=== PATIENT | female | born 1995 | race American Indian/Alaskan Native ===

== ENCOUNTER 2017-09-16 21:28 | Inpatient (IN) | payer SELFPAY ==
--- NOTE | 2017-09-16 22:53 | Emergency Department Report ---
ED General Adult HPI - General Chief complaint: Overdose Stated complaint: POSS OVERDOSE Time Seen by Provider: 09/16/17 22:51 Source: patient, EMS (ems notes not available at time of chart dictation), RN notes reviewed Mode of arrival: Stretcher Limitations: No Limitations - History of Present Illness Initial comments: This is a 21-year-old female who is previously known to this provider, brought to the hospital by EMS with complaint of nausea and vomiting. Patient has been having a toothache for the past few days, and has been taking aspirin by the handful since this morning. Patient is adamant that she is not homicidal or suicidal. She reports she is only trying to "helped my pain." Patient denies headache, neck pain, chest pain, shortness of breath, admits to nausea and vomiting. Reports that she is not . -: Gradual Consistency: constant Improves with: none Worsens with: none Associated Symptoms: loss of appetite, malaise, nausea/vomiting, weakness. denies: confusion, chest pain, cough, diaphoresis, headaches - Related Data Home Medications Medication Instructions Recorded Confirmed Last Taken No Known Home Medications [No 09/16/17 09/16/17 Unknown Reported Home Medications] Allergies Allergy/AdvReac Type Severity Reaction Status Date / Time No Known Allergies Allergy Verified 09/16/17 23:50 ED Review of Systems ROS: Stated complaint: POSS OVERDOSE Other details as noted in HPI ED Past Medical Hx - Past Medical History Previous Medical History?: No - Surgical History Past Surgical History?: No - Social History Smoking Status: Never Smoker Substance Use Type: None - Medications Home Medications: Home Medications Medication Instructions Recorded Confirmed Last Taken Type No Known Home Medications [No 09/16/17 09/16/17 Unknown History Reported Home Medications] ED Physical Exam - General Limitations: No Limitations General appearance: alert, anxious, in distress - Head Head exam: Present: atraumatic, normocephalic - Eye Eye exam: Present: normal appearance, EOMI - ENT ENT exam: Present: normal exam, mucous membranes moist - Neck Neck exam: Present: normal inspection, full ROM - Respiratory Respiratory exam: Present: normal lung sounds bilaterally. Absent: respiratory distress - Cardiovascular Cardiovascular Exam: Present: normal rhythm, tachycardia, normal heart sounds. Absent: systolic murmur, diastolic murmur, rubs, gallop - GI/Abdominal GI/Abdominal exam: Present: soft, normal bowel sounds. Absent: distended, tenderness, guarding, rebound, rigid, pulsatile mass - Extremities Exam Extremities exam: Present: normal inspection, full ROM, normal capillary refill. Absent: pedal edema, joint swelling, calf tenderness - Back Exam Back exam: Present: normal inspection, full ROM. Absent: tenderness, CVA tenderness (R), paraspinal tenderness, vertebral tenderness - Neurological Exam Neurological exam: Present: alert, oriented X3, CN II-XII intact, normal gait, other (Extraocular movements intact. Tongue midline. No facial droop. Facial sensation intact to light touch in the V1, V2, V3 distribution bilaterally. 5 and 5 strength in 4 extremities.. Sensation is intact to light touch in 4 extremities.). Absent: motor sensory deficit - Psychiatric Psychiatric exam: Present: anxious. Absent: homicidal ideation - Skin Skin exam: Present: warm, dry, intact, normal color. Absent: rash ED Course Vital Signs 09/16/17 09/16/17 09/16/17 22:06 22:08 22:12 Temperature Pulse Rate 83 87 89 Respiratory 24 24 17 Rate Blood Pressure O2 Sat by Pulse 100 99 99 Oximetry 09/16/17 09/16/17 09/16/17 22:14 22:16 22:18 Temperature 98.7 F Pulse Rate 96 H 84 89 Respiratory 17 19 16 Rate Blood Pressure 125/68 125/68 O2 Sat by Pulse 100 100 99 Oximetry 09/16/17 09/16/17 09/16/17 22:19 22:20 22:22 Temperature Pulse Rate 82 84 83 Respiratory 23 21 22 Rate Blood Pressure 125/68 125/68 125/68 O2 Sat by Pulse 100 100 99 Oximetry 09/16/17 09/16/17 09/16/17 22:24 22:26 22:28 Temperature Pulse Rate 95 H 80 88 Respiratory 17 15 23 Rate Blood Pressure 125/68 125/68 125/68 O2 Sat by Pulse 99 99 100 Oximetry 09/16/17 09/16/17 09/16/17 22:30 22:32 22:34 Temperature Pulse Rate 79 77 87 Respiratory 25 H 20 21 Rate Blood Pressure 121/75 121/75 121/75 O2 Sat by Pulse 100 99 99 Oximetry 09/16/17 09/16/17 09/16/17 22:36 22:38 22:40 Temperature Pulse Rate 98 H 102 H 105 H Respiratory 25 H 36 H 27 H Rate Blood Pressure 121/75 121/75 121/75 O2 Sat by Pulse 100 99 100 Oximetry 09/16/17 09/16/17 09/16/17 22:42 22:44 22:45 Temperature Pulse Rate 92 H 91 H 94 H Respiratory 22 24 17 Rate Blood Pressure 121/75 121/75 117/84 O2 Sat by Pulse 100 100 100 Oximetry 09/16/17 09/16/17 09/16/17 23:00 23:15 23:30 Temperature Pulse Rate 85 93 H 85 Respiratory 21 26 H 21 Rate Blood Pressure 125/68 140/71 119/69 O2 Sat by Pulse 100 99 99 Oximetry 09/16/17 09/17/17 09/17/17 23:54 00:00 00:15 Temperature Pulse Rate 102 H 95 H 100 H Respiratory 27 H 23 22 Rate Blood Pressure 129/99 129/99 139/96 O2 Sat by Pulse 100 100 Oximetry 09/17/17 09/17/17 09/17/17 00:29 00:30 00:45 Temperature Pulse Rate 87 85 Respiratory 22 18 18 Rate Blood Pressure 119/69 118/82 O2 Sat by Pulse 99 99 99 Oximetry 09/17/17 09/17/17 09/17/17 01:00 01:15 01:30 Temperature Pulse Rate 97 H 87 100 H Respiratory 19 16 18 Rate Blood Pressure 120/82 117/64 109/70 O2 Sat by Pulse 100 98 97 Oximetry 09/17/17 09/17/17 09/17/17 01:45 02:00 02:16 Temperature Pulse Rate 83 86 88 Respiratory 19 22 19 Rate Blood Pressure 120/72 120/72 106/55 O2 Sat by Pulse 100 99 97 Oximetry 09/17/17 09/17/17 09/17/17 02:30 02:45 03:00 Temperature Pulse Rate 88 85 86 Respiratory 20 21 20 Rate Blood Pressure 100/53 107/58 98/59 O2 Sat by Pulse 95 95 98 Oximetry 09/17/17 09/17/17 09/17/17 03:16 03:30 03:45 Temperature Pulse Rate 77 100 H 78 Respiratory 18 13 17 Rate Blood Pressure 92/68 90/66 94/48 O2 Sat by Pulse 96 96 97 Oximetry 09/17/17 09/17/17 09/17/17 04:00 04:15 04:30 Temperature Pulse Rate 73 79 94 H Respiratory 18 16 23 Rate Blood Pressure 99/48 94/49 94/49 O2 Sat by Pulse 98 98 99 Oximetry 09/17/17 09/17/17 09/17/17 04:46 05:00 05:30 Temperature Pulse Rate 83 83 74 Respiratory 19 19 17 Rate Blood Pressure 94/49 94/49 85/49 O2 Sat by Pulse 99 99 98 Oximetry 09/17/17 09/17/17 09/17/17 05:45 06:00 06:15 Temperature Pulse Rate 84 74 85 Respiratory 16 17 18 Rate Blood Pressure 102/48 102/53 106/53 O2 Sat by Pulse 100 97 97 Oximetry 09/17/17 09/17/17 09/17/17 06:30 06:46 07:00 Temperature Pulse Rate 84 90 84 Respiratory 18 18 13 Rate Blood Pressure 105/45 106/51 94/61 O2 Sat by Pulse 97 99 99 Oximetry 09/17/17 09/17/17 09/17/17 07:15 07:30 07:48 Temperature Pulse Rate 81 103 H 87 Respiratory 18 20 18 Rate Blood Pressure 100/55 100/55 100/55 O2 Sat by Pulse 99 98 Oximetry 09/17/17 09/17/17 09/17/17 08:16 08:38 08:44 Temperature 98.7 F Pulse Rate 88 Respiratory 22 Rate Blood Pressure 100/55 100/55 O2 Sat by Pulse 98 Oximetry 09/17/17 09/17/17 09/17/17 08:50 09:00 09:10 Temperature Pulse Rate 77 74 80 Respiratory 24 28 H 13 Rate Blood Pressure 100/55 100/55 100/55 O2 Sat by Pulse Oximetry 09/17/17 09/17/17 09/17/17 09:20 09:30 09:40 Temperature Pulse Rate 79 82 78 Respiratory 8 L 18 18 Rate Blood Pressure 100/55 100/55 100/55 O2 Sat by Pulse Oximetry 09/17/17 09/17/17 09/17/17 09:50 10:00 10:10 Temperature Pulse Rate 71 87 89 Respiratory 19 20 20 Rate Blood Pressure 100/55 100/55 100/55 O2 Sat by Pulse Oximetry 09/17/17 09/17/17 09/17/17 10:20 10:30 10:54 Temperature 98.8 F Pulse Rate 88 89 85 Respiratory 19 20 18 Rate Blood Pressure 100/55 100/55 113/76 O2 Sat by Pulse 99 Oximetry - Reevaluation(s) Reevaluation #1: 09/17/17 01:41 Differential diagnosis, including but not limited to: Aspirin overdose, Assessment and plan: 21-year-old female with aspirin overdose. She reports that she is not homicidal or suicidal. Nevertheless, given the magnitude of her overdose she is placed on a 1013. Patient is actively vomiting, therefore she is not a charcoal candidate. In addition, she presented more than one hour after her overdose/ingestion, therefore also not a charcoal candidate. Case discussed with the [facility], [place] who recommends admission to the ICU. Does not recommend dialysis for level less than 80. Patient currently mentating at this time, and does not require intubation, her arterial blood gas demonstrates an uncompensated respiratory alkalosis, which would be expected. Case discussed with critical care physician, Dr. Thomason, in the Hospital physician, Dr. Newby, who recommended admission to the ICU and agreed to consult, and admits the patient to the medical service respectively. 09/17/17 01:43 09/17/17 01:48 Reevaluation #2: 09/17/17 01:45 [facility] recommendations: Maintaining urine pH greater than 7.5, ensure that serum pH does not supersede 7.55 Obtain x-ray of the chest, abdomen and pelvis to exclude bezoar If urine not an alkaline range, bolus with sodium bicarbonate 1 mEq per kilogram. Of note, patient given 2 A of sodium bicarbonate initially. Begin maintenance infusion of D5 whole half normal saline with 100 mEq of sodium bicarbonate, at a rate of 120 mL per hour. Titrate infusion to maintain urine pH greater than 7.5. Monitor potassium. Initial urine pH was rechecked at 30 minute intervals. This interval maybe latent at the urinary pH is stabilized. Serum potassium levels to be monitored every 2-4 hours during alkalinization therapy. ED Medical Decision Making - Lab Data Result diagrams: 09/16/17 22:41 09/17/17 14:30 Vital Signs 09/16/17 09/16/17 09/16/17 22:06 22:08 22:12 Temperature Pulse Rate 83 87 89 Respiratory 24 24 17 Rate Blood Pressure O2 Sat by Pulse 100 99 99 Oximetry 09/16/17 09/16/1717 22:14 22:16 22:18 Temperature 98.7 F Pulse Rate 96 H 84 89 Respiratory 17 19 16 Rate Blood Pressure 125/68 125/68 O2 Sat by Pulse 100 100 99 Oximetry 09/16/17 09/16/17 09/16/17 22:19 22:20 22:22 Temperature Pulse Rate 82 84 83 Respiratory 23 21 22 Rate Blood Pressure 125/68 125/68 125/68 O2 Sat by Pulse 100 100 99 Oximetry 09/16/17 09/16/17 09/16/17 22:24 22:26 22:28 Temperature Pulse Rate 95 H 80 88 Respiratory 17 15 23 Rate Blood Pressure 125/68 125/68 125/68 O2 Sat by Pulse 99 99 100 Oximetry 09/16/17 09/16/17 09/16/17 22:30 22:32 22:34 Temperature Pulse Rate 79 77 87 Respiratory 25 H 20 21 Rate Blood Pressure 121/75 121/75 121/75 O2 Sat by Pulse 100 99 99 Oximetry 09/16/17 09/16/17 09/16/17 22:36 22:38 22:40 Temperature Pulse Rate 98 H 102 H 105 H Respiratory 25 H 36 H 27 H Rate Blood Pressure 121/75 121/75 121/75 O2 Sat by Pulse 100 99 100 Oximetry 09/16/17 09/16/17 09/16/17 22:42 22:44 22:45 Temperature Pulse Rate 92 H 91 H 94 H Respiratory 22 24 17 Rate Blood Pressure 121/75 121/75 117/84 O2 Sat by Pulse 100 100 100 Oximetry 09/16/17 09/16/17 09/16/17 23:00 23:15 23:30 Temperature Pulse Rate 85 93 H 85 Respiratory 21 26 H 21 Rate Blood Pressure 125/68 140/71 119/69 O2 Sat by Pulse 100 99 99 Oximetry 09/16/17 09/17/17 09/17/17 23:54 00:00 00:15 Temperature Pulse Rate 102 H 95 H 100 H Respiratory 27 H 23 22 Rate Blood Pressure 129/99 129/99 139/96 O2 Sat by Pulse 100 100 Oximetry 09/17/17 00:29 Temperature Pulse Rate Respiratory 22 Rate Blood Pressure O2 Sat by Pulse 99 Oximetry Lab Results 09/16/17 09/16/17 09/16/17 Range/Units 22:41 22:41 22:41 WBC 16.8 H (4.5-11.0) K/mm3 RBC 5.14 H (3.65-5.03) M/mm3 Hgb 15.4 H (10.1-14.3) gm/dl Hct 47.7 H (30.3-42.9) % MCV 93 (79-97) fl MCH 30 (28-32) pg MCHC 32 (30-34) % RDW 14.0 (13.2-15.2) % Plt Count 371 (140-440) K/mm3 Add Manual Diff Complete Total Counted 100 Seg Neutrophils % Mason[employer]er Seg Neuts % (Manual) 91.0 H (40.0-70.0) % Band Neutrophils % 0 % Lymphocytes % (Manual) 8.0 L (13.4-35.0) % Reactive Lymphs % (Man) 0 % Monocytes % (Manual) 1.0 (0.0-7.3) % Eosinophils % (Manual) 0 (0.0-4.3) % Basophils % (Manual) 0 (0.0-1.8) % Metamyelocytes % 0 % Myelocytes % 0 % Promyelocytes % 0 % Blast Cells % 0 % Nucleated RBC % Not Reportable Seg Neutrophils # Man 15.3 H (1.8-7.7) K/mm3 Band Neutrophils # 0.0 K/mm3 Lymphocytes # (Manual) 1.3 (1.2-5.4) K/mm3 Abs React Lymphs (Man) 0.0 K/mm3 Monocytes # (Manual) 0.2 (0.0-0.8) K/mm3 Eosinophils # (Manual) 0.0 (0.0-0.4) K/mm3 Basophils # (Manual) 0.0 (0.0-0.1) K/mm3 Metamyelocytes # 0.0 K/mm3 Myelocytes # 0.0 K/mm3 Promyelocytes # 0.0 K/mm3 Blast Cells # 0.0 K/mm3 WBC Morphology Not Reportable Hypersegmented Neuts Not Reportable Hyposegmented Neuts Not Reportable Hypogranular Neuts Not Reportable Smudge Cells Not Reportable Toxic Granulation Not Reportable Toxic Vacuolation Not Reportable Dohle Bodies Not Reportable Pelger-Huet Anomaly Not Reportable Valerio Rods Not Reportable Platelet Estimate Consistent w auto Clumped Platelets Not Reportable Plt Clumps, EDTA Not Reportable Large Platelets Not Reportable Giant Platelets Not Reportable Platelet Satelliting Not Reportable Plt Morphology Comment Not Reportable RBC Morphology Not Reportable Dimorphic RBCs Not Reportable Polychromasia Not Reportable Hypochromasia Not Reportable Poikilocytosis Not Reportable Anisocytosis 1+ Microcytosis Not Reportable Macrocytosis Not Reportable Spherocytes Not Reportable Pappenheimer Bodies Not Reportable Sickle Cells Not Reportable Target Cells Not Reportable Tear Drop Cells Not Reportable Ovalocytes Not Reportable Helmet Cells Not Reportable Pyle-Lefors Bodies Not Reportable [place] Rings Not Reportable [place] Cells Not Reportable Bite Cells Not Reportable Crenated Cell Not Reportable Elliptocytes Not Reportable Acanthocytes (Spur) Not Reportable Rouleaux Not Reportable Hemoglobin C Crystals Not Reportable Schistocytes Not Reportable Malaria parasites Not Reportable Hal Bodies Not Reportable Hem Pathologist Commnt No PT (12.2-14.9) Sec. INR (0.87-1.13) APTT (24.2-36.6) Sec. POC ABG pH (7.35-7.45) POC ABG pCO2 (35-45) POC ABG pO2 (80-105) POC ABG HCO3 POC ABG Total CO2 POC ABG O2 Sat POC ABG Base Excess FiO2 % Sodium > 179 H* (137-145) mmol/L Potassium 6.3 H* (3.6-5.0) mmol/L Chloride > 139 H (98-107) mmol/L Carbon Dioxide 28 (22-30) mmol/L Anion Gap 18 mmol/L BUN 16 (7-17) mg/dL Creatinine 1.1 (0.7-1.2) mg/dL Estimated GFR > 60 ml/min BUN/Creatinine Ratio 15 % Glucose 254 H (65-100) mg/dL Calcium 12.4 H* (8.4-10.2) mg/dL Magnesium (1.7-2.3) mg/dL HCG, Quant (0-4) mIU/mL Urine Color (Yellow) Urine Turbidity (Clear) Urine pH (5.0-7.0) Ur Specific [place] (1.003-1.030) Urine Protein (Negative) mg/dL Urine Glucose (UA) (Negative) mg/dL Urine Ketones (Negative) mg/dL Urine Blood (Negative) Urine Nitrite (Negative) Ur Reducing Substances Urine Bilirubin (Negative) Urine Ictotest Urine Urobilinogen (<2.0) mg/dL Ur Leukocyte Esterase (Negative) Urine WBC (Auto) (0.0-6.0) /HPF Urine RBC (Auto) (0.0-6.0) /HPF U Epithel Cells (Auto) (0-13.0) /HPF Urine Bacteria (Auto) (Negative) /HPF Urine Mucus /HPF Salicylates 53.3 H (2.8-20.0) mg/dL Urine Opiates Screen Urine Methadone Screen Acetaminophen (10.0-30.0) ug/mL Ur Barbiturates Screen Ur Phencyclidine Scrn Ur Amphetamines Screen U Benzodiazepines Scrn Urine Cocaine Screen U Marijuana (THC) Screen Drugs of Abuse Note Plasma/Serum Alcohol (0-0.07) gm% 09/16/17 09/16/17 09/16/17 Range/Units 22:41 22:41 23:49 WBC (4.5-11.0) K/mm3 RBC (3.65-5.03) M/mm3 Hgb (10.1-14.3) gm/dl Hct (30.3-42.9) % MCV (79-97) fl MCH (28-32) pg MCHC (30-34) % RDW (13.2-15.2) % Plt Count (140-440) K/mm3 Add Manual Diff Total Counted Seg Neutrophils % Seg Neuts % (Manual) (40.0-70.0) % Band Neutrophils % % Lymphocytes % (Manual) (13.4-35.0) % Reactive Lymphs % (Man) % Monocytes % (Manual) (0.0-7.3) % Eosinophils % (Manual) (0.0-4.3) % Basophils % (Manual) (0.0-1.8) % Metamyelocytes % % Myelocytes % % Promyelocytes % % Blast Cells % % Nucleated RBC % Seg Neutrophils # Man (1.8-7.7) K/mm3 Band Neutrophils # K/mm3 Lymphocytes # (Manual) (1.2-5.4) K/mm3 Abs React Lymphs (Man) K/mm3 Monocytes # (Manual) (0.0-0.8) K/mm3 Eosinophils # (Manual) (0.0-0.4) K/mm3 Basophils # (Manual) (0.0-0.1) K/mm3 Metamyelocytes # K/mm3 Myelocytes # K/mm3 Promyelocytes # K/mm3 Blast Cells # K/mm3 WBC Morphology Hypersegmented Neuts Hyposegmented Neuts Hypogranular Neuts Smudge Cells Toxic Granulation Toxic Vacuolation Dohle Bodies Pelger-Huet Anomaly Valerio Rods Platelet Estimate Clumped Platelets Plt Clumps, EDTA Large Platelets Giant Platelets Platelet Satelliting Plt Morphology Comment RBC Morphology Dimorphic RBCs Polychromasia Hypochromasia Poikilocytosis Anisocytosis Microcytosis Macrocytosis Spherocytes Pappenheimer Bodies Sickle Cells Target Cells Tear Drop Cells Ovalocytes Helmet Cells Pyle-Lefors Bodies [place] Rings Neil Cells Bite Cells Crenated Cell Elliptocytes Acanthocytes (Spur) Rouleaux Hemoglobin C Crystals Schistocytes Malaria parasites Hal Bodies Hem Pathologist Commnt PT (12.2-14.9) Sec. INR (0.87-1.13) APTT (24.2-36.6) Sec. POC ABG pH (7.35-7.45) POC ABG pCO2 (35-45) POC ABG pO2 (80-105) POC ABG HCO3 POC ABG Total CO2 POC ABG O2 Sat POC ABG Base Excess FiO2 % Sodium (137-145) mmol/L Potassium (3.6-5.0) mmol/L Chloride (98-107) mmol/L Carbon Dioxide (22-30) mmol/L Anion Gap mmol/L BUN (7-17) mg/dL Creatinine (0.7-1.2) mg/dL Estimated GFR ml/min BUN/Creatinine Ratio % Glucose (65-100) mg/dL Calcium (8.4-10.2) mg/dL Magnesium (1.7-2.3) mg/dL HCG, Quant < 2 (0-4) mIU/mL Urine Color (Yellow) Urine Turbidity (Clear) Urine pH (5.0-7.0) Ur Specific [place] (1.003-1.030) Urine Protein (Negative) mg/dL Urine Glucose (UA) (Negative) mg/dL Urine Ketones (Negative) mg/dL Urine Blood (Negative) Urine Nitrite (Negative) Ur Reducing Substances Urine Bilirubin (Negative) Urine Ictotest Urine Urobilinogen (<2.0) mg/dL Ur Leukocyte Esterase (Negative) Urine WBC (Auto) (0.0-6.0) /HPF Urine RBC (Auto) (0.0-6.0) /HPF U Epithel Cells (Auto) (0-13.0) /HPF Urine Bacteria (Auto) (Negative) /HPF Urine Mucus /HPF Salicylates (2.8-20.0) mg/dL Urine Opiates Screen Urine Methadone Screen Acetaminophen < 15.0 (10.0-30.0) ug/mL Ur Barbiturates Screen Ur Phencyclidine Scrn Ur Amphetamines Screen U Benzodiazepines Scrn Urine Cocaine Screen U Marijuana (THC) Screen Drugs of Abuse Note Plasma/Serum Alcohol < 0.01 (0-0.07) gm% 09/16/17 09/16/17 09/17/17 Range/Units 23:53 23:53 00:00 WBC (4.5-11.0) K/mm3 RBC (3.65-5.03) M/mm3 Hgb (10.1-14.3) gm/dl Hct (30.3-42.9) % MCV (79-97) fl MCH (28-32) pg MCHC (30-34) % RDW (13.2-15.2) % Plt Count (140-440) K/mm3 Add Manual Diff Total Counted Seg Neutrophils % Seg Neuts % (Manual) (40.0-70.0) % Band Neutrophils % % Lymphocytes % (Manual) (13.4-35.0) % Reactive Lymphs % (Man) % Monocytes % (Manual) (0.0-7.3) % Eosinophils % (Manual) (0.0-4.3) % Basophils % (Manual) (0.0-1.8) % Metamyelocytes % % Myelocytes % % Promyelocytes % % Blast Cells % % Nucleated RBC % Seg Neutrophils # Man (1.8-7.7) K/mm3 Band Neutrophils # K/mm3 Lymphocytes # (Manual) (1.2-5.4) K/mm3 Abs React Lymphs (Man) K/mm3 Monocytes # (Manual) (0.0-0.8) K/mm3 Eosinophils # (Manual) (0.0-0.4) K/mm3 Basophils # (Manual) (0.0-0.1) K/mm3 Metamyelocytes # K/mm3 Myelocytes # K/mm3 Promyelocytes # K/mm3 Blast Cells # K/mm3 WBC Morphology Hypersegmented Neuts Hyposegmented Neuts Hypogranular Neuts Smudge Cells Toxic Granulation Toxic Vacuolation Dohle Bodies Pelger-Huet Anomaly Valerio Rods Platelet Estimate Clumped Platelets Plt Clumps, EDTA Large Platelets Giant Platelets Platelet Satelliting Plt Morphology Comment RBC Morphology Dimorphic RBCs Polychromasia Hypochromasia Poikilocytosis Anisocytosis Microcytosis Macrocytosis Spherocytes Pappenheimer Bodies Sickle Cells Target Cells Tear Drop Cells Ovalocytes Helmet Cells Pyle-Lefors Bodies [place] Rings [place] Cells Bite Cells Crenated Cell Elliptocytes Acanthocytes (Spur) Rouleaux Hemoglobin C Crystals Schistocytes Malaria parasites Hal Bodies Hem Pathologist Commnt PT 14.0 (12.2-14.9) Sec. INR 1.03 (0.87-1.13) APTT 32.3 (24.2-36.6) Sec. POC ABG pH (7.35-7.45) POC ABG pCO2 (35-45) POC ABG pO2 (80-105) POC ABG HCO3 POC ABG Total CO2 POC ABG O2 Sat POC ABG Base Excess FiO2 % Sodium 141 D (137-145) mmol/L Potassium 3.9 D (3.6-5.0) mmol/L Chloride 99.9 (98-107) mmol/L Carbon Dioxide 20 L D (22-30) mmol/L Anion Gap 25 mmol/L BUN 12 (7-17) mg/dL Creatinine 0.9 (0.7-1.2) mg/dL Estimated GFR > 60 ml/min BUN/Creatinine Ratio 13 % Glucose 116 H (65-100) mg/dL Calcium 9.6 D (8.4-10.2) mg/dL Magnesium 2.40 H (1.7-2.3) mg/dL HCG, Quant (0-4) mIU/mL Urine Color (Yellow) Urine Turbidity (Clear) Urine pH (5.0-7.0) Ur Specific [place] (1.003-1.030) Urine Protein (Negative) mg/dL Urine Glucose (UA) (Negative) mg/dL Urine Ketones (Negative) mg/dL Urine Blood (Negative) Urine Nitrite (Negative) Ur Reducing Substances Urine Bilirubin (Negative) Urine Ictotest Urine Urobilinogen (<2.0) mg/dL Ur Leukocyte Esterase (Negative) Urine WBC (Auto) (0.0-6.0) /HPF Urine RBC (Auto) (0.0-6.0) /HPF U Epithel Cells (Auto) (0-13.0) /HPF Urine Bacteria (Auto) (Negative) /HPF Urine Mucus /HPF Salicylates (2.8-20.0) mg/dL Urine Opiates Screen Urine Methadone Screen Acetaminophen (10.0-30.0) ug/mL Ur Barbiturates Screen Ur Phencyclidine Scrn Ur Amphetamines Screen U Benzodiazepines Scrn Urine Cocaine Screen U Marijuana (THC) Screen Drugs of Abuse Note Plasma/Serum Alcohol (0-0.07) gm% 09/17/17 09/17/17 09/17/17 Range/Units 00:19 00:27 00:27 WBC (4.5-11.0) K/mm3 RBC (3.65-5.03) M/mm3 Hgb (10.1-14.3) gm/dl Hct (30.3-42.9) % MCV (79-97) fl MCH (28-32) pg MCHC (30-34) % RDW (13.2-15.2) % Plt Count (140-440) K/mm3 Add Manual Diff Total Counted Seg Neutrophils % Seg Neuts % (Manual) (40.0-70.0) % Band Neutrophils % % Lymphocytes % (Manual) (13.4-35.0) % Reactive Lymphs % (Man) % Monocytes % (Manual) (0.0-7.3) % Eosinophils % (Manual) (0.0-4.3) % Basophils % (Manual) (0.0-1.8) % Metamyelocytes % % Myelocytes % % Promyelocytes % % Blast Cells % % Nucleated RBC % Seg Neutrophils # Man (1.8-7.7) K/mm3 Band Neutrophils # K/mm3 Lymphocytes # (Manual) (1.2-5.4) K/mm3 Abs React Lymphs (Man) K/mm3 Monocytes # (Manual) (0.0-0.8) K/mm3 Eosinophils # (Manual) (0.0-0.4) K/mm3 Basophils # (Manual) (0.0-0.1) K/mm3 Metamyelocytes # K/mm3 Myelocytes # K/mm3 Promyelocytes # K/mm3 Blast Cells # K/mm3 WBC Morphology Hypersegmented Neuts Hyposegmented Neuts Hypogranular Neuts Smudge Cells Toxic Granulation Toxic Vacuolation Dohle Bodies Pelger-Huet Anomaly Valerio Rods Platelet Estimate Clumped Platelets Plt Clumps, EDTA Large Platelets Giant Platelets Platelet Satelliting Plt Morphology Comment RBC Morphology Dimorphic RBCs Polychromasia Hypochromasia Poikilocytosis Anisocytosis Microcytosis Macrocytosis Spherocytes Pappenheimer Bodies Sickle Cells Target Cells Tear Drop Cells Ovalocytes Helmet Cells Pyle-Lefors Bodies [place] Rings Neil Cells Bite Cells Crenated Cell Elliptocytes Acanthocytes (Spur) Rouleaux Hemoglobin C Crystals Schistocytes Malaria parasites Hal Bodies Hem Pathologist Commnt PT (12.2-14.9) Sec. INR (0.87-1.13) APTT (24.2-36.6) Sec. POC ABG pH 7.503 H (7.35-7.45) POC ABG pCO2 30.8 L (35-45) POC ABG pO2 95 (80-105) POC ABG HCO3 24.2 POC ABG Total CO2 25 POC ABG O2 Sat 98 POC ABG Base Excess 1 FiO2 21 % Sodium (137-145) mmol/L Potassium (3.6-5.0) mmol/L Chloride (98-107) mmol/L Carbon Dioxide (22-30) mmol/L Anion Gap mmol/L BUN (7-17) mg/dL Creatinine (0.7-1.2) mg/dL Estimated GFR ml/min BUN/Creatinine Ratio % Glucose (65-100) mg/dL Calcium (8.4-10.2) mg/dL Magnesium (1.7-2.3) mg/dL HCG, Quant (0-4) mIU/mL Urine Color Yellow (Yellow) Urine Turbidity Clear (Clear) Urine pH 7.0 (5.0-7.0) Ur Specific [place] 1.026 (1.003-1.030) Urine Protein 30 mg/dl (Negative) mg/dL Urine Glucose (UA) Neg (Negative) mg/dL Urine Ketones 80 (Negative) mg/dL Urine Blood Neg (Negative) Urine Nitrite Neg (Negative) Ur Reducing Substances Not Reportable Urine Bilirubin Neg (Negative) Urine Ictotest Not Reportable Urine Urobilinogen < 2.0 (<2.0) mg/dL Ur Leukocyte Esterase Tr (Negative) Urine WBC (Auto) 9.0 H (0.0-6.0) /HPF Urine RBC (Auto) 2.0 (0.0-6.0) /HPF U Epithel Cells (Auto) 3.0 (0-13.0) /HPF Urine Bacteria (Auto) 1+ (Negative) /HPF Urine Mucus Few /HPF Salicylates (2.8-20.0) mg/dL Urine Opiates Screen Presumptive negative Urine Methadone Screen Presumptive negative Acetaminophen (10.0-30.0) ug/mL Ur Barbiturates Screen Presumptive negative Ur Phencyclidine Scrn Presumptive negative Ur Amphetamines Screen Presumptive negative U Benzodiazepines Scrn Presumptive negative Urine Cocaine Screen Presumptive negative U Marijuana (THC) Screen Presumptive positive Drugs of Abuse Note Disclamer Plasma/Serum Alcohol (0-0.07) gm% - EKG Data -: EKG Interpreted by Me EKG shows normal: sinus rhythm Rate: normal - EKG Data 09/17/17 02:21 Normal sinus, 79 bpm, normal axis, normal intervals, atrial enlargement, motion artifact, not having chest pain, not consistent with ST elevation myocardial infarction. - Radiology Data Radiology results: image reviewed interpreted by me: X-ray of the chest, abdomen, pelvis, interpreted by me: No acute disease, no obvious bezoar Critical Care Time: Yes Critical care time in (mins) excluding proc time.: 45 Critical care attestation.: If time is entered above; I have spent that time in minutes in the direct care of this critically ill patient, excluding procedure time. ED Disposition Clinical Impression: Aspirin overdose Disposition: DC-09 OP ADMIT IP TO THIS HOSP Is pt being admited?: Yes Condition: Critical
[2017-09-16 23:13] LABS: Hematocrit 47.7 % (30.3-42.9); Hemoglobin 15.4 gm/dl (10.1-14.3); Mean Corpuscular HGB Conc 32 % (30-34); Mean Corpuscular Hemoglobin 30 pg (28-32); Mean Corpuscular Volume 93 fl (79-97); Platelet Count 371 K/mm3 (140-440); Red Blood Count 5.14 M/mm3 (3.65-5.03)
[2017-09-16 23:35] LABS: BUN/Creatinine Ratio 15; Blood Urea Nitrogen 16 mg/dL (7-17); Hemolysis Index 11
[2017-09-16] MEDS ORDERED: ZOFRAN IV ONE (23:50)
[2017-09-16] MEDS ORDERED: SODIUM BICARBONATE IV ONE ×2 (23:50→23:53)
[2017-09-16 23:51] LABS: Calcium 12.4 mg/dL (8.4-10.2)
[2017-09-17] MEDS ORDERED: SODIUM BICARBONATE 150 MEQ in D5W 1,000 ML IV ONE (00:04)
[2017-09-17 00:27] LABS: INR 1.03 (0.87-1.13)
[2017-09-17 00:28] LABS: Partial Thromboplastin Time 32.3 Sec. (24.2-36.6)
[2017-09-17 00:34] LABS: BUN/Creatinine Ratio 13; Blood Urea Nitrogen 12 mg/dL (7-17); Calcium 9.6 mg/dL (8.4-10.2); Hemolysis Index 5
[2017-09-17 00:54] LABS: Amphetamine Screen,Urine PRESUMPTIVE NEGATIVE; Bacteria,Urine 1+ /HPF (Negative); Benzodiazepines Screen,Urine PRESUMPTIVE NEGATIVE; Bilirubin,Urine NEG (Negative); Blood,Urine NEG (Negative); Cocaine Screen,Urine PRESUMPTIVE NEGATIVE; Color,Urine Yellow (Yellow); Methadone Screen,Urine PRESUMPTIVE NEGATIVE; Mucus,Urine FEW /HPF; Nitrite,Urine NEG (Negative); Opiate Screen,Urine PRESUMPTIVE NEGATIVE; Urobilinogen,Urine < 2.0 mg/dL (<2.0)
[2017-09-17 01:24] LABS: Cannabinoid Screen,Urine PRESUMPTIVE POSITIVE
[2017-09-17 01:31] LABS: Anisocytosis 1+; Basophils % (Manual) 0 % (0.0-1.8); Eosinophils % (Manual) 0 % (0.0-4.3); Platelet Estimate Consistent w Auto; Total Cells Counted 100
[2017-09-17 01:49] LABS: Bacteria,Urine 1+ /HPF (Negative); Bilirubin,Urine NEG (Negative); Blood,Urine NEG (Negative); Color,Urine Yellow (Yellow); Mucus,Urine FEW /HPF; Nitrite,Urine NEG (Negative); Urobilinogen,Urine < 2.0 mg/dL (<2.0)
[2017-09-17] MEDS ORDERED: SODIUM BICARBONATE IV ONE (02:22)
[2017-09-17 02:31] LABS: BUN/Creatinine Ratio 16; Blood Urea Nitrogen 13 mg/dL (7-17); Calcium 9.2 mg/dL (8.4-10.2); Hemolysis Index 8
--- NOTE | 2017-09-17 02:51 | History and Physical Report ---
History of Present Illness Date of admission: 09/17/17 01:47 Chief complaint: Nausea and vomiting History of present illness: 21-year-old woman who states that she had been having a toothache for about 3 days. The pain got acutely worse today prompting her to take aspirin by the handfuls she probably took about 47 pills. Shortly after Center having nausea and vomiting did not get better from that come to the hospital. When asked what she took some any aspirin since that was the only thing that helped her pain. She denies suicide ideation or any depression. She denies fevers or chills, she just wants to get a toothache to go away. Denies headache, fevers and nausea and vomiting has now resolved. No abdominal pain Past History Past Medical History: No medical history Past Surgical History: No surgical history Social history: no significant social history Family history: hypertension Medications and Allergies Allergies Allergy/AdvReac Type Severity Reaction Status Date / Time No Known Allergies Allergy Verified 09/16/17 23:50 Home Medications Medication Instructions Recorded Confirmed Last Taken Type No Known Home Medications [No 09/16/17 09/16/17 Unknown History Reported Home Medications] Active Meds: Active Medications Sodium Bicarbonate 150 meq/ (Dextrose) 1,150 mls @ 120 mls/hr IV ONCE.ED ONE Stop: 09/17/17 09:38 Last Admin: 09/17/17 00:51 Dose: 120 mls/hr Review of Systems All systems: negative (as stated in HPI; 14 point ROS is otherwise negative) Exam - Constitutional Vitals: Temp Pulse Resp BP Pulse Ox 98.7 F 100 H 22 139/96 99 09/16/17 22:14 09/17/17 00:15 09/17/17 00:29 09/17/17 00:15 09/17/17 00:29 General appearance: Present: no acute distress, well-nourished - EENT Eyes: Present: PERRL ENT: hearing intact, clear oral mucosa, other (dental caries in 1st and second right maxilary molars), no dentition normal (poor dentition) - Neck Neck: Present: supple, normal ROM - Respiratory Respiratory effort: normal Respiratory: bilateral: CTA - Cardiovascular Heart Sounds: Present: S1 & S2. Absent: rub, click - Extremities Extremities: pulses symmetrical, No edema Peripheral Pulses: within normal limits - Abdominal General gastrointestinal: Present: soft, non-tender, non-distended, normal bowel sounds Female genitourinary: Present: normal - Integumentary Integumentary: Present: clear, warm, dry - Musculoskeletal Musculoskeletal: gait normal, strength equal bilaterally - Psychiatric Psychiatric: appropriate mood/affect, intact judgment & insight - Neurologic Neurologic: CNII-XII intact, moves all extremities Results - Labs CBC & Chem 7: 09/16/17 22:41 09/17/17 04:31 Labs: Laboratory Last Values WBC 16.8 K/mm3 (4.5-11.0) H 09/16/17 22:41 RBC 5.14 M/mm3 (3.65-5.03) H 09/16/17 22:41 Hgb 15.4 gm/dl (10.1-14.3) H 09/16/17 22:41 Hct 47.7 % (30.3-42.9) H 09/16/17 22:41 MCV 93 fl (79-97) 09/16/17 22:41 MCH 30 pg (28-32) 09/16/17 22:41 MCHC 32 % (30-34) 09/16/17 22:41 RDW 14.0 % (13.2-15.2) 09/16/17 22:41 Plt Count 371 K/mm3 (140-440) 09/16/17 22:41 Add Manual Diff Complete 09/16/17 22:41 Total Counted 100 09/16/17 22:41 Seg Neutrophils % Managing Cognitive Engineer 09/16/17 22:41 Seg Neuts % (Manual) 91.0 % (40.0-70.0) H 09/16/17 22:41 Band Neutrophils % 0 % 09/16/17 22:41 Lymphocytes % (Manual) 8.0 % (13.4-35.0) L 09/16/17 22:41 Reactive Lymphs % (Man) 0 % 09/16/17 22:41 Monocytes % (Manual) 1.0 % (0.0-7.3) 09/16/17 22:41 Eosinophils % (Manual) 0 % (0.0-4.3) 09/16/17 22:41 Basophils % (Manual) 0 % (0.0-1.8) 09/16/17 22:41 Metamyelocytes % 0 % 09/16/17 22:41 Myelocytes % 0 % 09/16/17 22:41 Promyelocytes % 0 % 09/16/17 22:41 Blast Cells % 0 % 09/16/17 22:41 Nucleated RBC % Not Reportable 09/16/17 22:41 Seg Neutrophils # Man 15.3 K/mm3 (1.8-7.7) H 09/16/17 22:41 Band Neutrophils # 0.0 K/mm3 09/16/17 22:41 Lymphocytes # (Manual) 1.3 K/mm3 (1.2-5.4) 09/16/17 22:41 Abs React Lymphs (Man) 0.0 K/mm3 09/16/17 22:41 Monocytes # (Manual) 0.2 K/mm3 (0.0-0.8) 09/16/17 22:41 Eosinophils # (Manual) 0.0 K/mm3 (0.0-0.4) 09/16/17 22:41 Basophils # (Manual) 0.0 K/mm3 (0.0-0.1) 09/16/17 22:41 Metamyelocytes # 0.0 K/mm3 09/16/17 22:41 Myelocytes # 0.0 K/mm3 09/16/17 22:41 Promyelocytes # 0.0 K/mm3 09/16/17 22:41 Blast Cells # 0.0 K/mm3 09/16/17 22:41 WBC Morphology Not Reportable 09/16/17 22:41 Hypersegmented Neuts Not Reportable 09/16/17 22:41 Hyposegmented Neuts Not Reportable 09/16/17 22:41 Hypogranular Neuts Not Reportable 09/16/17 22:41 Smudge Cells Not Reportable 09/16/17 22:41 Toxic Granulation Not Reportable 09/16/17 22:41 Toxic Vacuolation Not Reportable 09/16/17 22:41 Dohle Bodies Not Reportable 09/16/17 22:41 Pelger-Huet Anomaly Not Reportable 09/16/17 22:41 Valerio Rods Not Reportable 09/16/17 22:41 Platelet Estimate Consistent w auto 09/16/17 22:41 Clumped Platelets Not Reportable 09/16/17 22:41 Plt Clumps, EDTA Not Reportable 09/16/17 22:41 Large Platelets Not Reportable 09/16/17 22:41 Giant Platelets Not Reportable 09/16/17 22:41 Platelet Satelliting Not Reportable 09/16/17 22:41 Plt Morphology Comment Not Reportable 09/16/17 22:41 RBC Morphology Not Reportable 09/16/17 22:41 Dimorphic RBCs Not Reportable 09/16/17 22:41 Polychromasia Not Reportable 09/16/17 22:41 Hypochromasia Not Reportable 09/16/17 22:41 Poikilocytosis Not Reportable 09/16/17 22:41 Anisocytosis 1+ 09/16/17 22:41 Microcytosis Not Reportable 09/16/17 22:41 Macrocytosis Not Reportable 09/16/17 22:41 Spherocytes Not Reportable 09/16/17 22:41 Pappenheimer Bodies Not Reportable 09/16/17 22:41 Sickle Cells Not Reportable 09/16/17 22:41 Target Cells Not Reportable 09/16/17 22:41 Tear Drop Cells Not Reportable 09/16/17 22:41 Ovalocytes Not Reportable 09/16/17 22:41 Helmet Cells Not Reportable 09/16/17 22:41 Pyle-[place]aw[place] Bodies Not Reportable 09/16/17 22:41 Cannon Rings Not Reportable 09/16/17 22:41 [place] Cells Not Reportable 09/16/17 22:41 Bite Cells Not Reportable 09/16/17 22:41 Crenated Cell Not Reportable 09/16/17 22:41 Elliptocytes Not Reportable 09/16/17 22:41 Acanthocytes (Spur) Not Reportable 09/16/17 22:41 Rouleaux Not Reportable 09/16/17 22:41 Hemoglobin C Crystals Not Reportable 09/16/17 22:41 Schistocytes Not Reportable 09/16/17 22:41 Malaria parasites Not Reportable 09/16/17 22:41 Hal Bodies Not Reportable 09/16/17 22:41 Hem Pathologist Commnt No 09/16/17 22:41 PT 14.0 Sec. (12.2-14.9) 09/16/17 23:53 INR 1.03 (0.87-1.13) 09/16/17 23:53 APTT 32.3 Sec. (24.2-36.6) 09/16/17 23:53 POC ABG pH 7.503 (7.35-7.45) H 09/17/17 00:19 POC ABG pCO2 30.8 (35-45) L 09/17/17 00:19 POC ABG pO2 95 (80-105) 09/17/17 00:19 POC ABG HCO3 24.2 09/17/17 00:19 POC ABG Total CO2 25 09/17/17 00:19 POC ABG O2 Sat 98 09/17/17 00:19 POC ABG Base Excess 1 09/17/17 00:19 FiO2 21 % 09/17/17 00:19 Sodium 139 mmol/L (137-145) 09/17/17 02:02 Potassium 3.2 mmol/L (3.6-5.0) L 09/17/17 02:02 Chloride 96.4 mmol/L (98-107) L 09/17/17 02:02 Carbon Dioxide 25 mmol/L (22-30) 09/17/17 02:02 Anion Gap 21 mmol/L 09/17/17 02:02 BUN 13 mg/dL (7-17) 09/17/17 02:02 Creatinine 0.8 mg/dL (0.7-1.2) 09/17/17 02:02 Estimated GFR > 60 ml/min 09/17/17 02:02 BUN/Creatinine Ratio 16 % 09/17/17 02:02 Glucose 133 mg/dL (65-100) H 09/17/17 02:02 Calcium 9.2 mg/dL (8.4-10.2) 09/17/17 02:02 Magnesium 2.40 mg/dL (1.7-2.3) H 09/17/17 00:00 HCG, Quant < 2 mIU/mL (0-4) 09/16/17 23:49 Urine Color Yellow (Yellow) 09/17/17 01:00 Urine Turbidity Clear (Clear) 09/17/17 01:00 Urine pH 7.0 (5.0-7.0) 09/17/17 01:00 Ur Specific Bowman 1.023 (1.003-1.030) 09/17/17 01:00 Urine Protein 100 mg/dl mg/dL (Negative) 09/17/17 01:00 Urine Glucose (UA) Neg mg/dL (Negative) 09/17/17 01:00 Urine Ketones 80 mg/dL (Negative) 09/17/17 01:00 Urine Blood Neg (Negative) 09/17/17 01:00 Urine Nitrite Neg (Negative) 09/17/17 01:00 Ur Reducing Substances Not Reportable 09/17/17 00:27 Urine Bilirubin Neg (Negative) 09/17/17 01:00 Urine Ictotest Not Reportable 09/17/17 00:27 Urine Urobilinogen < 2.0 mg/dL (<2.0) 09/17/17 01:00 Ur Leukocyte Esterase Neg (Negative) 09/17/17 01:00 Urine WBC (Auto) 3.0 /HPF (0.0-6.0) 09/17/17 01:00 Urine RBC (Auto) 4.0 /HPF (0.0-6.0) 09/17/17 01:00 U Epithel Cells (Auto) 3.0 /HPF (0-13.0) 09/17/17 01:00 Urine Bacteria (Auto) 1+ /HPF (Negative) 09/17/17 01:00 Urine Mucus Few /HPF 09/17/17 01:00 Salicylates 53.3 mg/dL (2.8-20.0) H 09/16/17 22:41 Urine Opiates Screen Presumptive negative 09/17/17 00:27 Urine Methadone Screen Presumptive negative 09/17/17 00:27 Acetaminophen < 15.0 ug/mL (10.0-30.0) 09/16/17 22:41 Ur Barbiturates Screen Presumptive negative 09/17/17 00:27 Ur Phencyclidine Scrn Presumptive negative 09/17/17 00:27 Ur Amphetamines Screen Presumptive negative 09/17/17 00:27 U Benzodiazepines Scrn Presumptive negative 09/17/17 00:27 Urine Cocaine Screen Presumptive negative 09/17/17 00:27 U Marijuana (THC) Screen Presumptive positive 09/17/17 00:27 Drugs of Abuse Note Disclamer 09/17/17 00:27 Plasma/Serum Alcohol < 0.01 gm% (0-0.07) 09/16/17 22:41 - Imaging and Cardiology Chest x-ray: image reviewed (no bezoar) Abdominal x-ray: image reviewed (no bezoar) Assessment and Plan Assessment and plan: 21F with aspirin poisoning Aspirin poisoning -Dr. Galarza discussed this case with poison control. They recommend alkalizing the urine. The goal is to get the urine pH above 7.5 and to keep the serum pH below 7.55. Continue bicarbonate drip. Check BMP, serum and urine pH every 2 hours, patient will need to be in the ICU -Denies suicidal ideation or intent, mental health has been consulted by the ED Nausea and vomiting Muscles likely due to aspirin toxicity, now resolving, antiemetics as needed, metabolic acidosis due to asa poisoning, continue bicarb drip Tooth ache pain meds, need outpatient Dentist visit Obesity advised lifestyle modification dvt ppx early ambulation and scds Critical care TIME 33 minutes
--- NOTE | 2017-09-17 02:56 | XRay Report ---
FINAL REPORT PROCEDURE: XR ABD SERIES W CXR 1V TECHNIQUE: Abdominal series complete, including supine and upright AP views of the abdomen and frontal chest. HISTORY: asa overdose ? bezoar COMPARISON: No prior studies are available for comparison. FINDINGS: Heart: Normal. Mediastinum/Vessels: Normal. Lungs/Pleural space: Normal. Bowel gas pattern: Nonobstructive. Masses or calcifications: None. Bony structures: No acute osseous abnormality. Other: No free intraperitoneal air. IMPRESSION: No acute abnormality.
[2017-09-17] MEDS: SODIUM BICARBONATE 150 MEQ in D5W 1,000 ML IV SCH ×2 (03:45→10:21)
[2017-09-17] MEDS: KCL 10MEQ/100ML 10 MEQ/100 ML BAG IV SCH ×4 (04:18→10:21)
[2017-09-17 05:15] LABS: BUN/Creatinine Ratio 16; Blood Urea Nitrogen 13 mg/dL (7-17); Hemolysis Index 18
[2017-09-17] MEDS ORDERED: K-DUR PO ONE ×3 (06:16→12:00)
[2017-09-17 07:53] LABS: BUN/Creatinine Ratio 12; Blood Urea Nitrogen 11 mg/dL (7-17); Calcium 8.6 mg/dL (8.4-10.2); Hemolysis Index 9
[2017-09-17 09:07] LABS: Alanine Aminotransferase 10 units/L (7-56); Albumin 4.2 g/dL (3.9-5)
[2017-09-17 09:17] LABS: Bilirubin,Direct < 0.2 mg/dL (0-0.2)
--- NOTE | 2017-09-17 10:55 | Event Note ---
Date: 09/17/17 Patient denies suicidal ideation, was using Aspirin for pain control and was not intentionally tyring to harm herself. she states she has too much to live for. will discontinue 1013. She agrees to contact psych if she feels any urge to harm herself or someone else.
[2017-09-17] MEDS ORDERED: NACL 0.9% IV SCH ×2 (12:00→13:00)
[2017-09-17] MEDS ORDERED: KCL IV SCH ×2 (12:00→13:00)
[2017-09-17] MEDS ORDERED: DIFLUCAN PO ONE (12:00)
[2017-09-17] MEDS: PERCOCET 5/325 PO PRN ×2 (12:34→23:49)
[2017-09-17 15:01] LABS: Hepatitis A Antibody IgM Non-Reactive (NonReactive); Hepatitis B Core IgM Non-Reactive (NonReactive); Hepatitis B Surface Antigen Non-Reactive (Negative); Hepatitis C Virus Antibody Non-Reactive (NonReactive)
[2017-09-17] MEDS: MORPHINE IV PRN ×2 (15:08→20:49)
[2017-09-17 15:19] LABS: BUN/Creatinine Ratio 12; Blood Urea Nitrogen 11 mg/dL (7-17); Calcium 9.4 mg/dL (8.4-10.2); Hemolysis Index 7
--- NOTE | 2017-09-17 19:09 | Event Note ---
Date: 09/17/[address] Cummins thank you for asking us to participate in the care of this patient. This is 27 year old female admitted for nausea and Vomiting.Patient has been taking handful of Aspirin tablets for tooth ache. Patients salicylate level high on admission 53.3. . Patients urine drug screen also positive for [place].Patients Blood gases reported PH 7.5, PCO2 38, PO2 95, HCO3 24, O2 saturation 98% on room air. Patient has mild respiratory alkalosis. Patients chest xray reported no acute abnormality. Patient denies chest pain,shortness of breath or cough.Patient has history of asthma.No known allergies.Patient says smokes 10 cigaretts a day for last 2 months. Not . Has fiance and 3 children. Impression. 1. Excessive aspirin ingestion. 2. Urine drug screen positive for Marijuana 3. Respiratory alkalosis 4. Nausea, Vomiting. 5. Obesity. PLAN: 1. Continue Hydration. 2. Repeat salicylate level and ABGs. 3. Counselled to stop smoking.
--- NOTE | 2017-09-17 20:24 | Consultation ---
History of Present Illness - Reason for Consult Reason for consult: psych consult - Chief Complaint Chief complaint: CC: "my toothache" 21yo BF presents to [facility] after incurring an overdose on ASA. Patient notes that she's been trying to deal with a ongoing toothache unsuccessfully. Couple of days ago she began to use aspiring for the pain and felt it wasn't working. therefore she notes that she asked her fiance to get more and proceeded to take several at a time every couple of hours. She denies taking a handful and adamantly denies trying to harm herself in any fashion. She notes that after taking too many aspirin she became sick and began vomiting. Her fiance looked up effects of ASA overdoes and became worried as she was exhibiting signs of an overdose. He then called for an ambulance who brought her to [facility]. At the hospital she continued to note that her intention to take that many aspiring was an attempt to treat her pain and not to harm herself in any way. She denied any depression. No SI/HI/AH/Vh. No psychosis. No etoh or illicit drug use. She notes that she has much to live for and her children to take care of. Her fiance with presents during the interview and noted the same things as her. He was insistent that this episode was not intentional or a means of self harm. Medications and Allergies Allergies Allergy/AdvReac Type Severity Reaction Status Date / Time No Known Allergies Allergy Verified 09/16/17 23:50 Home Medications Medication Instructions Recorded Confirmed Last Taken Type No Known Home Medications [No 09/16/17 09/16/17 Unknown History Reported Home Medications] Active Meds: Active Medications Potassium Chloride 50 meq/ (Sodium Chloride) 1,025 mls @ 125 mls/hr IV DIRECT GABBIE Last Admin: 09/17/17 17:20 Dose: 125 mls/hr Influenza Virus Vaccine Quadrival (Fluarix Quad [id number](36 Mos+) 0.5 ml IM .ONCE ONE Stop: 09/18/17 12:01 Morphine Sulfate (Morphine) 2 mg IV Q4H PRN PRN Reason: Pain, Moderate (4-6) Last Admin: 09/17/17 15:08 Dose: 2 mg Oxycodone/Acetaminophen (Percocet 5/325) 1 tab PO Q6H PRN PRN Reason: Pain, Moderate (4-6) Last Admin: 09/17/17 12:34 Dose: 1 tab Pneumococcal Polyvalent Vaccine (Pneumovax 23) 0.5 ml IM .ONCE ONE Stop: 09/18/17 12:01 Past psychiatric history - Past Medical History Past Medical History: other (toothache) - past Psychiatric treatment and history psychiatric treatment history: inpt: none outpt: none SA- none family psych hx: none no abuse substance hx: patient denies any etoh or illicit drug use- pt did test pos for THC no DUI or legal issues - Social History Social history: other (lives with fiance in house with 3 children, support from fiance and parents, grandma taking care of children at this time, not working, 10th grade education, ) Mental Status Exam - Vital signs Last Vital Signs Temp 98.7 F 09/17/17 08:44 Pulse 88 09/17/17 08:38 Resp 20 09/17/17 15:08 BP 100/55 09/17/17 08:38 Pulse Ox 98 09/17/17 08:16 - Exam Orientation: time, place, person Affect: normal Mood: appropriate Thought Process: Intact Perceptions: none Speech: normal rate and pattern Concentration: focused Motor activity: normal Level of consciousness: alert Memory: Intact Interaction: cooperative, defensive Mini mental status exam(if necessary): 24-30 Results Result Diagrams: 09/16/17 22:41 09/17/17 14:30 Abnormal lab results 09/16/17 09/16/17 09/16/17 Range/Units 22:41 22:41 22:41 WBC 16.8 H (4.5-11.0) K/mm3 RBC 5.14 H (3.65-5.03) M/mm3 Hgb 15.4 H (10.1-14.3) gm/dl Hct 47.7 H (30.3-42.9) % Seg Neuts % (Manual) 91.0 H (40.0-70.0) % Lymphocytes % (Manual) 8.0 L (13.4-35.0) % Seg Neutrophils # Man 15.3 H (1.8-7.7) K/mm3 POC ABG pH (7.35-7.45) POC ABG pCO2 (35-45) VBG pH (7.320-7.420) Sodium > 179 H* (137-145) mmol/L Potassium 6.3 H* (3.6-5.0) mmol/L Chloride > 139 H (98-107) mmol/L Carbon Dioxide (22-30) mmol/L Glucose 254 H (65-100) mg/dL Calcium 12.4 H* (8.4-10.2) mg/dL Magnesium (1.7-2.3) mg/dL Urine WBC (Auto) (0.0-6.0) /HPF Salicylates 53.3 H (2.8-20.0) mg/dL 09/16/17 09/17/17 09/17/17 Range/Units 23:53 00:00 00:19 WBC (4.5-11.0) K/mm3 RBC (3.65-5.03) M/mm3 Hgb (10.1-14.3) gm/dl Hct (30.3-42.9) % Seg Neuts % (Manual) (40.0-70.0) % Lymphocytes % (Manual) (13.4-35.0) % Seg Neutrophils # Man (1.8-7.7) K/mm3 POC ABG pH 7.503 H (7.35-7.45) POC ABG pCO2 30.8 L (35-45) VBG pH (7.320-7.420) Sodium (137-145) mmol/L Potassium (3.6-5.0) mmol/L Chloride (98-107) mmol/L Carbon Dioxide 20 L D (22-30) mmol/L Glucose 116 H (65-100) mg/dL Calcium (8.4-10.2) mg/dL Magnesium 2.40 H (1.7-2.3) mg/dL Urine WBC (Auto) (0.0-6.0) /HPF Salicylates (2.8-20.0) mg/dL 09/17/17 09/17/17 09/17/17 Range/Units 00:27 02:02 03:57 WBC (4.5-11.0) K/mm3 RBC (3.65-5.03) M/mm3 Hgb (10.1-14.3) gm/dl Hct (30.3-42.9) % Seg Neuts % (Manual) (40.0-70.0) % Lymphocytes % (Manual) (13.4-35.0) % Seg Neutrophils # Man (1.8-7.7) K/mm3 POC ABG pH (7.35-7.45) POC ABG pCO2 (35-45) VBG pH 7.457 H (7.320-7.420) Sodium (137-145) mmol/L Potassium 3.2 L (3.6-5.0) mmol/L Chloride 96.4 L (98-107) mmol/L Carbon Dioxide (22-30) mmol/L Glucose 133 H (65-100) mg/dL Calcium (8.4-10.2) mg/dL Magnesium (1.7-2.3) mg/dL Urine WBC (Auto) 9.0 H (0.0-6.0) /HPF Salicylates (2.8-20.0) mg/dL 09/17/17 09/17/17 09/17/17 Range/Units 04:31 07:22 07:22 WBC (4.5-11.0) K/mm3 RBC (3.65-5.03) M/mm3 Hgb (10.1-14.3) gm/dl Hct (30.3-42.9) % Seg Neuts % (Manual) (40.0-70.0) % Lymphocytes % (Manual) (13.4-35.0) % Seg Neutrophils # Man (1.8-7.7) K/mm3 POC ABG pH (7.35-7.45) POC ABG pCO2 (35-45) VBG pH (7.320-7.420) Sodium (137-145) mmol/L Potassium 2.9 L* 2.9 L* (3.6-5.0) mmol/L Chloride 97.3 L 96.1 L (98-107) mmol/L Carbon Dioxide (22-30) mmol/L Glucose 108 H 125 H (65-100) mg/dL Calcium (8.4-10.2) mg/dL Magnesium (1.7-2.3) mg/dL Urine WBC (Auto) (0.0-6.0) /HPF Salicylates 25.4 H (2.8-20.0) mg/dL 12/27/17 12/27/17 Range/Units 14:30 14:30 WBC (4.5-11.0) K/mm3 RBC (3.65-5.03) M/mm3 Hgb (10.1-14.3) gm/dl Hct (30.3-42.9) % Seg Neuts % (Manual) (40.0-70.0) % Lymphocytes % (Manual) (13.4-35.0) % Seg Neutrophils # Man (1.8-7.7) K/mm3 POC ABG pH (7.35-7.45) POC ABG pCO2 (35-45) VBG pH (7.320-7.420) Sodium (137-145) mmol/L Potassium 3.4 L 3.4 L (3.6-5.0) mmol/L Chloride 94.7 L (98-107) mmol/L Carbon Dioxide 31 H (22-30) mmol/L Glucose (65-100) mg/dL Calcium (8.4-10.2) mg/dL Magnesium (1.7-2.3) mg/dL Urine WBC (Auto) (0.0-6.0) /HPF Salicylates (2.8-20.0) mg/dL All other labs normal. Assessment and Plan Assessment and plan: 21yo BF presents to [facility] after incurring an overdose on ASA. Patient notes that she's been trying to deal with a ongoing toothache unsuccessfully. She ended up taking too many aspiring leading to an unintentional overdose. Her fiance also gives the same story. A/P: 1. Adjustment d/o c depressed mood- will continue to follow as this diagnosis is a reflection of her many stressors and several poor coping strategies. Patient and her fiance denies any overt symptoms indicative of a major depression. At this time they are willing to go to therapy but decline any medications. While the overdose did lead to a medical event, both her and her fiance's presentation do not suggest at this time this was intentional. I do believe that they did not fully take into account of the consequences and were negligent with their decisions, but not to where they intended harm. At this time no further commitment to a psych inpt is needed. patient could benefit from outpt therapy referral. Rescind 1013 at this time. 2. Marijuana abuse- patient and fiance do not seem to feel that the marijuana use has led to any consequences and do not feel that it is an issue. Given the cultural changes in attitude towards marijuana use and the patient's age, I don' t feel they view it as an illicit drug and are unlikely to want any change at this time.
[2017-09-18] MEDS: MORPHINE IV PRN ×2 (04:43→11:30)
[2017-09-18] MEDS: PERCOCET 5/325 PO PRN (08:12)
[2017-09-18] MEDS ORDERED: NACL 0.9% 1000 ML 2,000 ML IV ONE (08:21)
--- NOTE | 2017-09-18 09:27 | Discharge Summary ---
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 Thomason Notified:: her number Phone number called:: her number Was contact made?: Yes If yes, spoke with:: Dr. Thomason Time called:: 00:08 Comment:: Dr. Galarza (er dr) spoke with Dr. Thomason Primary care physician: TAL CORBETT Hospitalization Reason for admission: ASA overdose Condition: Stable Hospital course: 21-year-old woman who states that she had been having a toothache for about 3 days. The pain got acutely worse today prompting her to take aspirin by the handfuls she probably took about 47 pills. Shortly after Center having nausea and vomiting did not get better from that come to the hospital. When asked what she took some any aspirin since that was the only thing that helped her pain. She denies suicide ideation or any depression. She denies fevers or chills, she just wants to get a toothache to go away. Denies headache, fevers and nausea and vomiting has now resolved. No abdominal pain Aspirin poisoning monitored, ASA LEVEL FOLLOWED AND IMPORVED, ACIDOSIS RESOLVED Gastroenteritis Muscles likely due to aspirin toxicity. Resolved metabolic acidosis Resolved, treated with bicarb drip Tooth ache pain meds, need outpatient Dentist visit Obesity advised lifestyle modification Adjustment disorder-depressed mood Per Psych "Patient and her fiance denies any overt symptoms indicative of a major depression. At this time they are willing to go to therapy but decline any medications. While the overdose did lead to a medical event, both her and her fiance's presentation do not suggest at this time this was intentional. I do believe that they did not fully take into account of the consequences and were negligent with their decisions, but not to where they intended harm. At this time no further commitment to a psych inpt is needed. patient could benefit from outpt therapy referral. Rescind 1013 at this time." Marijuana abuse- patient and fiance do not seem to feel that the marijuana use has led to any consequences and do not feel that it is an issue. Given the cultural changes in attitude towards marijuana use and the patient's age, I don't feel they view it as an illicit drug and are unlikely to want any change at this time. Disposition: DC-01 TO HOME OR SELFCARE Time spent for discharge: 35 mins Core Measure Documentation - Palliative Care Palliative Care/ Comfort Measures: Not Applicable - Core Measures Any of the following diagnoses?: none - VTE Discharge Requirements Deep Vein Thrombosis/Pulmonary Embolism Present on Admission: No Exam - Constitutional Vitals: Temp Pulse Resp BP Pulse Ox 98.5 F 60 20 97/51 98 09/18/17 04:44 09/18/17 04:44 09/18/17 08:12 09/18/17 04:44 09/18/17 04:44 General appearance: Present: no acute distress, well-nourished - EENT Eyes: Present: PERRL, EOM intact ENT: hearing intact, clear oral mucosa, dentition normal - Neck Neck: Present: supple, normal ROM - Respiratory Respiratory effort: normal Respiratory: bilateral: CTA - Cardiovascular Rhythm: regular Heart Sounds: Present: S1 & S2 - Extremities Extremities: no ischemia, pulses intact, pulses symmetrical, No edema, normal temperature, normal color, Full ROM Peripheral Pulses: within normal limits - Abdominal General gastrointestinal: Present: soft, non-tender, non-distended, normal bowel sounds - Integumentary Integumentary: Present: clear, warm - Musculoskeletal Musculoskeletal: strength equal bilaterally - Psychiatric Psychiatric: appropriate mood/affect - Neurologic Neurologic: CNII-XII intact, moves all extremities Plan Activity: advance as tolerated, fall precautions Diet: low cholesterol Special Instructions: record daily weights, smoking cessation Follow up with: TAL CORBETT MD [Primary Care Provider] - 3-5 Days Prescriptions: Amoxicillin/K Clav Tab [Augmentin 875MG TAB] 1 each PO Q12HR #20 tablet traMADol [Ultram] 50 mg PO Q6HR PRN #14 tablet PRN Reason: Pain
[2017-09-18] MEDS ORDERED: AUGMENTIN 875 MG PO SCH (10:00)
[2017-09-18 11:21] VITALS: BP 118/72
[2017-09-18] MEDS ORDERED: NACL 0.9% 1000 ML 1,000 ML ONE (11:25)
[2017-09-18 11:26] LABS: Hematocrit 42.9 % (30.3-42.9); Hemoglobin 13.7 gm/dl (10.1-14.3); Mean Corpuscular HGB Conc 32 % (30-34); Mean Corpuscular Hemoglobin 30 pg (28-32); Mean Corpuscular Volume 94 fl (79-97); Platelet Count 286 K/mm3 (140-440); Red Blood Count 4.56 M/mm3 (3.65-5.03); Red Cell Distribution Width 14.2 % (13.2-15.2)
[2017-09-18 11:48] LABS: BUN/Creatinine Ratio 10; Blood Urea Nitrogen 7 mg/dL (7-17); Calcium 9.2 mg/dL (8.4-10.2); Hemolysis Index 17
[2017-09-18] MEDS ORDERED: PNEUMOVAX 23 IM ONE (12:00)
[2017-09-18] MEDS ORDERED: Fluarix Quad 2017-2018(36 MOS+ IM ONE (12:00)
== END 2017-09-18 13:21 | disposition home or self-care (01) | DRG 918 ==
LOC: ED 21:28 → CC1 09-17 01:47 → 4A 09-17 08:35
PROVIDERS: ADMIT Internal Medicine; ATTEND Internal Medicine
PROC: 4A033R1 Measurement of Arterial Saturation, Peripheral, Percutaneous Approach (ICD-10-PCS; 2017-09-17)
PROC: 3E0234Z Introduction of Serum, Toxoid and Vaccine into Muscle, Percutaneous Approach (ICD-10-PCS; principal; 2017-09-18)
DX: T39.011A Poisoning by aspirin, accidental (unintentional), initial encounter (principal); E87.2 Acidosis; Z82.49 Family history of ischemic heart disease and other diseases of the circulatory system; K08.89 Other specified disorders of teeth and supporting structures; E66.9 Obesity, unspecified; Z68.32 Body mass index [BMI] 32.0-32.9, adult; F12.10 Cannabis abuse, uncomplicated; F43.21 Adjustment disorder with depressed mood; K52.9 Noninfective gastroenteritis and colitis, unspecified; Z23 Encounter for immunization
CPT/HCPCS: 36415; 36600; 74022; 80048; 80074; 80307; 80320; 81001; 81025; 82803; 82805; 83735; 83986; 84132; 84702; 85007; 85025; 85027; 85610; 85730; 87529; 87806; 90686; 90732; 93005; 93010; 96374; 96375; 99291; G0480; J2270; J2405; J3480; J7030; J7070

== ENCOUNTER 2021-05-30 04:37 | Emergency (ER) | payer SELFPAY ==
--- NOTE | 2021-05-30 07:03 | Emergency Department Report ---
ED Rash HPI - HPI Chief Complaint: Skin/Abscess/Foreign Body Stated Complaint: BED BUG BITES Time Seen by Provider: 05/30/21 06:56 Duration: 1 Day Location: Chest, Back, Lower Extremities Suspected Cause: Insect (Bedbug infestation) Rash Symptoms: Yes Itching, No Choking Sensation, No Peeling, No Fever, No Lightheaded, No Myalgias Severity: moderate Other History: 25-year-old [place]ag[place] female presents to the emergency emerge department complaining of a infestation of bedbugs at home and has sustained multiple bites to the back and chest area and a linear fashion with local hiving at the bite sites. Area is very pruritic in nature right now presents emergency department seeking medication of her symptoms. ED Review of Systems ROS: Stated complaint: BED BUG BITES Other details as noted in HPI Comment: All other systems reviewed and negative ED Past Medical Hx - Past Medical History Hx Congestive Heart Failure: No Hx Diabetes: No Hx Asthma: Yes Hx COPD: No - Social History Smoking Status: Never Smoker Substance Use Type: None - Medications Home Medications: Home Medications Medication Instructions Recorded Confirmed Last Taken Type Amoxicillin/K Clav Tab [Augmentin 1 each PO Q12HR #20 tablet 09/18/17 Unknown Rx 875MG TAB] traMADoL [Ultram] 50 mg PO Q6HR PRN #14 tablet 09/18/17 Unknown Rx Mometasone Furoate [Elocon] 1 gm TP BID #45 oint...g. 05/30/21 Unknown Rx Permethrin 5% [Acticin 5% CREAM] 1 applicatio TP ONCE #1 tube 05/30/21 Unknown Rx hydrOXYzine HCL [Atarax] 25 mg PO Q6HR PRN #30 tablet 05/30/21 Unknown Rx predniSONE [Deltasone] 50 mg PO QDAY #5 tab 05/30/21 Unknown Rx Rash Exam - Exam General: Vital signs noted. No distress. Alert and acting appropriately. HEENT: No Periorbital Edema, No Conjuctival Injection, No Chemosis, No Perioral Edema, No Tongue Edema, No Uvular Edema, No Compromised Airway, No Drooling Lungs: Yes Good Air Exchange (Normal Breath Sounds), No Wheezes, No Ronchi, No Stridor, No Cough, No Labored Respirations, No Retractions, No Use of Accessory Muscles, No Other Abnormal Lung Sounds Heart: Yes Regular, No Murmur Skin: Yes Urticarial Rash (In a linear bite-like fashion), Yes Erythema Other: Positive: Abdomen Normal, Neurologic Normal, Musculoskeletal Normal ED Medical Decision Making - Medical Decision Making This is a 25-year-old female patient presents with a rash for 1-2 days consistent with differential diagnosis includes contact, atopic,, eczematous dermatitis, psoriasis, pruritic papular eruption but is most consistent with bedbug infestation. History and exam findings not consistent with a dangerous etiology of rash such a Webster-Santosh's syndrome or secondary to dangerous causes such as petechial rashes from thrombocytopenia or rickettsial infections. Plan at this time is to treat symptomatically and instructed follow-up with PCP or dermatology for reevaluation further management of the skin condition Critical care attestation.: If time is entered above; I have spent that time in minutes in the direct care of this critically ill patient, excluding procedure time. ED Disposition Clinical Impression: Infestation by bed bug, Hives Disposition: HOME / SELF CARE / HOMELESS Is pt being admited?: No Does the pt Need Aspirin: No Condition: Stable Instructions: Hives, Bedbugs, [id number], Bedbugs Prescriptions: Permethrin 5% [Acticin 5% CREAM] 1 applicatio TP ONCE #1 tube hydrOXYzine HCL [Atarax] 25 mg PO Q6HR PRN #30 tablet PRN Reason: Itching predniSONE [Deltasone] 50 mg PO QDAY #5 tab Mometasone Furoate [Elocon] 1 gm TP BID #45 oint...g. Referrals: [facility] [Provider Group] - 3-5 Days [facility] [Outside] - 3-5 Days PRIMARY MD UBALDO [Primary Care Provider] - 3-5 Days MAYNOR OCAMPO MD [Staff Physician] - 3-5 Days
== END 2021-05-30 07:37 | disposition home or self-care (01) ==
LOC: ED 04:37
DX: S20.469A Insect bite (nonvenomous) of unspecified back wall of thorax, initial encounter (principal); S20.369A Insect bite (nonvenomous) of unspecified front wall of thorax, initial encounter; J45.909 Unspecified asthma, uncomplicated; W57.XXXA Bitten or stung by nonvenomous insect and other nonvenomous arthropods, initial encounter; Y93.89 Activity, other specified; Y92.89 Other specified places as the place of occurrence of the external cause; Y99.8 Other external cause status
CPT/HCPCS: 99281

== ENCOUNTER 2021-07-20 12:55 | Emergency (ER) | payer MEDICAID, OTHER ==
--- NOTE | 2021-07-20 15:31 | Emergency Department Report ---
ED General Adult HPI - General Chief complaint: Medical Clearance Stated complaint: Vomiting for 2 days. I do not know if I am . My teeth hurt. I need homeless assisted resources. PUI?: No Time Seen by Provider: 07/20/21 15:27 Source: patient, RN notes reviewed, old records reviewed Mode of arrival: Ambulatory Limitations: No Limitations - History of Present Illness Initial comments: During the history and physical examination, I am chaperoned by Mila Vivas The patient is a 25-year-old female. The patient presents to the ER today with a request for medical clearance. The patient reports 2 days of nausea and vomiting. It is painless. It is now resolved. She is asking to eat. The patient is also requesting a list of homeless shelters, and also requesting list of resources to participate in methamphetamine detox. The patient currently denies headache, neck pain, chest pain, abdominal pain, shortness of breath, homicidality, suicidality or hallucinations, access to guns or firearms. The patient does not use intravenous drugs. The patient denies dysuria. The patient states that she is not sure if she is . She states that presuming she is not today, she is 4, para 3, last menstrual period is in the beginning of May. The patient also complains of chronic dental pain, and points to tooth #30, 31 and 32, and reports that she is takingprescribed Tylenol for her pain. She reports that she is taking the Tylenol as prescribed and is not attempting to overdose. She took Tylenol earlier on today prior to arrival. Consistency: now resolved Worsens with: none - Related Data Previous Rx's Medication Instructions Recorded Last Taken Type Mometasone Furoate [Elocon] 1 gm TP BID #45 oint...g. 05/30/21 Unknown Rx Permethrin 5% [Acticin 5% CREAM] 1 applicatio TP ONCE #1 tube 05/30/21 Unknown Rx Acetaminophen [Non-Aspirin Extra 500 mg PO Q6HR PRN #30 tablet 07/20/21 Unknown Rx Strength] Chlorhexidine Mouthwash [Peridex] 15 ml MM BID #1 bottle 07/20/21 Unknown Rx Doxylamine Succinate/Vit B6 1 each PO QHS PRN #30 tablet. 07/20/21 Unknown Rx [Lokesh Kunz 10-10 mg Tablet] Rohit Root [Rohit] 250 mg PO QID PRN #30 capsule 07/20/21 Unknown Rx cephALEXin [Keflex] 500 mg PO Q6HR #20 capsule 07/20/21 Unknown Rx Allergies Allergy/AdvReac Type Severity Reaction Status Date / Time No Known Allergies Allergy Verified 09/16/17 23:50 ED Review of Systems ROS: Stated complaint: VOMITTING 2 DAYS Other details as noted in HPI Constitutional: denies: fever Eyes: denies: eye discharge ENT: dental pain Respiratory: denies: cough Cardiovascular: denies: chest pain Gastrointestinal: nausea, vomiting. denies: abdominal pain Musculoskeletal: denies: myalgia Neurological: denies: weakness Psychiatric: anxiety. denies: auditory hallucinations, visual hallucinations, homicidal thoughts, suicidal thoughts ED Past Medical Hx - Past Medical History Previous Medical History?: Yes Hx Hypertension: Yes Hx Congestive Heart Failure: No Hx Diabetes: No Hx Asthma: Yes Hx COPD: No Additional medical history: eczema, left pelvic fracture - Surgical History Past Surgical History?: Yes Additional Surgical History: repair left pelvic fracture - Social History Smoking Status: Current Every Day Smoker Substance Use Type: Alcohol, Cocaine, Marijuana, Methamphetamines - Medications Home Medications: Home Medications Medication Instructions Recorded Confirmed Last Taken Type Mometasone Furoate [Elocon] 1 gm TP BID #45 oint...g. 05/30/21 Unknown Rx Permethrin 5% [Acticin 5% CREAM] 1 applicatio TP ONCE #1 tube 05/30/21 Unknown Rx Acetaminophen [Non-Aspirin Extra 500 mg PO Q6HR PRN #30 tablet 07/20/21 Unknown Rx Strength] Chlorhexidine Mouthwash [Peridex] 15 ml MM BID #1 bottle 07/20/21 Unknown Rx Doxylamine Succinate/Vit B6 1 each PO QHS PRN #30 tablet.dr 07/20/21 Unknown Rx [Lokesh Kunz 10-10 mg Tablet] Rohit Root [Rohit] 250 mg PO QID PRN #30 capsule 07/20/21 Unknown Rx cephALEXin [Keflex] 500 mg PO Q6HR #20 capsule 07/20/21 Unknown Rx ED Physical Exam - General Limitations: No Limitations General appearance: alert, anxious, other (Patient noted to be talking on the cell phone. She is not in any acute distress) - Head Head exam: Present: atraumatic, normocephalic - Eye Eye exam: Present: normal appearance, EOMI - ENT ENT exam: Present: normal exam, mucous membranes moist, normal external ear exam, other (Poor dentition. Fractured tooth #31. No redness, pus or streaking. No stridor. No gingival abscesses noted. No elevation of the base of the tongue.). Absent: normal orophraynx - Neck Neck exam: Present: normal inspection, full ROM. Absent: tenderness, meningismus - Respiratory Respiratory exam: Present: normal lung sounds bilaterally. Absent: respiratory distress, wheezes, rales, rhonchi, stridor, decreased breath sounds - Cardiovascular Cardiovascular Exam: Present: regular rate, normal rhythm, normal heart sounds. Absent: bradycardia, tachycardia, irregular rhythm, systolic murmur, diastolic murmur, rubs, gallop - GI/Abdominal GI/Abdominal exam: Present: soft. Absent: distended, tenderness, guarding, rebound, rigid, pulsatile mass - Extremities Exam Extremities exam: Present: normal inspection, full ROM, other (2+ pulses noted in the bilateral upper and lower extremities. There is no palpable cord. negative Homans sign. Muscular compartments are soft. The pelvis is stable.). Absent: pedal edema, calf tenderness - Back Exam Back exam: Present: normal inspection, full ROM. Absent: tenderness, CVA tenderness (R), CVA tenderness (L), paraspinal tenderness, vertebral tenderness - Neurological Exam Neurological exam: Present: alert, oriented X3, normal gait, other (No facial droop. Tongue midline. Extraocular movements intact bilaterally. Facial sensation intact to light touch in V1, V2, V3 distribution bilaterally. 5 and a 5 strength in 4 extremities. Sensation intact to light touch in 4 extremities.). Absent: motor sensory deficit - Psychiatric Psychiatric exam: Present: anxious. Absent: homicidal ideation, suicidal ideation - Skin Skin exam: Present: warm, dry, intact, normal color. Absent: rash ED Course Vital Signs 07/20/21 07/20/21 07/20/21 13:48 15:05 15:06 Temperature 98.2 F Pulse Rate 99 H 109 H 110 H Respiratory 18 20 15 Rate Blood Pressure 134/74 125/64 117/76 O2 Sat by Pulse 99 100 100 Oximetry 07/20/21 16:00 Temperature Pulse Rate 101 H Respiratory 23 Rate Blood Pressure 139/82 O2 Sat by Pulse 100 Oximetry - Procedure Description Procedures done: With the patient's verbal consent, bedside [id number] ultrasound was performed, with transabdominal/suprapubic probe, with a female personnel counselor is present. Intrauterine is identified, with heart motion noted. There is no free fluid noted. All findings discussed with patient. She articulated understanding. No complications ED Medical Decision Making - Lab Data Result diagrams: 07/20/21 15:32 07/20/21 15:32 Vital Signs 07/20/21 07/20/21 07/20/21 13:48 15:05 15:06 Temperature 98.2 F Pulse Rate 99 H 109 H 110 H Respiratory 18 20 15 Rate Blood Pressure 134/74 125/64 117/76 O2 Sat by Pulse 99 100 100 Oximetry 07/20/21 16:00 Temperature Pulse Rate 101 H Respiratory 23 Rate Blood Pressure 139/82 O2 Sat by Pulse 100 Oximetry Lab Results 07/20/21 07/20/21 07/20/21 Range/Units 14:20 14:20 15:32 WBC 11.4 H (4.5-11.0) K/mm3 RBC 4.38 (3.65-5.03) M/mm3 Hgb 13.0 (10.1-14.3) gm/dl Hct 39.6 (30.3-42.9) % MCV 90 (79-97) fl MCH 30 (28-32) pg MCHC 33 (30-34) % RDW 13.2 (13.2-15.2) % Plt Count 320 (140-440) K/mm3 Sodium (137-145) mmol/L Potassium (3.6-5.0) mmol/L Chloride (98-107) mmol/L Carbon Dioxide (22-30) mmol/L Anion Gap mmol/L BUN (7-17) mg/dL Creatinine (0.6-1.2) mg/dL Estimated GFR ml/min BUN/Creatinine Ratio % Glucose (65-100) mg/dL Calcium (8.4-10.2) mg/dL Magnesium (1.7-2.3) mg/dL Total Bilirubin (0.1-1.2) mg/dL AST (5-40) units/L ALT (7-56) units/L Alkaline Phosphatase (35-129) units/L Total Creatine Kinase (30-135) units/L Total Protein (6.3-8.2) g/dL Albumin (3.9-5) g/dL Albumin/Globulin Ratio % Lipase (13-60) units/L TSH (0.270-4.200) mlU/mL HCG, Quant (0-4) mIU/mL Urine Color Ree (Yellow) Urine Turbidity Turbid (Clear) Urine pH 6.0 (5.0-7.0) Ur Specific Elon 1.030 (1.003-1.030) Urine Protein 100 mg/dl (Negative) mg/dL Urine Glucose (UA) Neg (Negative) mg/dL Urine Ketones Neg (Negative) mg/dL Urine Blood Neg (Negative) Urine Nitrite Pos (Negative) Urine Bilirubin Neg (Negative) Urine Urobilinogen < 2.0 (<2.0) mg/dL Ur Leukocyte Esterase Mod (Negative) Urine WBC (Auto) > 182.0 H (0.0-6.0) /HPF Urine RBC (Auto) 26.0 (0.0-6.0) /HPF U Epithel Cells (Auto) > 182.0 H (0-13.0) /HPF Urine Bacteria (Auto) 2+ (Negative) /HPF Urine Mucus 3+ /HPF Salicylates (2.8-20.0) mg/dL Urine Opiates Screen Negative Urine Methadone Screen Negative Acetaminophen (10.0-30.0) ug/mL Ur Barbiturates Screen Negative Ur Phencyclidine Scrn Negative Ur Amphetamines Screen Positive U Benzodiazepines Scrn Negative Urine Cocaine Screen Negative U Marijuana (THC) Screen Positive Drugs of Abuse Note Disclamer Plasma/Serum Alcohol (0-0.07) % 07/20/21 07/20/21 07/20/21 Range/Units 15:32 15:32 15:32 WBC (4.5-11.0) K/mm3 RBC (3.65-5.03) M/mm3 Hgb (10.1-14.3) gm/dl Hct (30.3-42.9) % MCV (79-97) fl MCH (28-32) pg MCHC (30-34) % RDW (13.2-15.2) % Plt Count (140-440) K/mm3 Sodium 137 (137-145) mmol/L Potassium 3.9 (3.6-5.0) mmol/L Chloride 99.7 (98-107) mmol/L Carbon Dioxide 23 (22-30) mmol/L Anion Gap 18 mmol/L BUN 11 (7-17) mg/dL Creatinine 0.6 (0.6-1.2) mg/dL Estimated GFR > 60 ml/min BUN/Creatinine Ratio 18 % Glucose 98 (65-100) mg/dL Calcium 9.8 (8.4-10.2) mg/dL Magnesium 2.10 (1.7-2.3) mg/dL Total Bilirubin 0.30 (0.1-1.2) mg/dL AST 13 (5-40) units/L ALT 9 (7-56) units/L Alkaline Phosphatase 90 (35-129) units/L Total Creatine Kinase 172 H (30-135) units/L Total Protein 8.1 (6.3-8.2) g/dL Albumin 4.4 (3.9-5) g/dL Albumin/Globulin Ratio 1.2 % Lipase 36 (13-60) units/L TSH 2.310 (0.270-4.200) mlU/mL HCG, Quant 05931 H (0-4) mIU/mL Urine Color (Yellow) Urine Turbidity (Clear) Urine pH (5.0-7.0) Ur Specific Elon (1.003-1.030) Urine Protein (Negative) mg/dL Urine Glucose (UA) (Negative) mg/dL Urine Ketones (Negative) mg/dL Urine Blood (Negative) Urine Nitrite (Negative) Urine Bilirubin (Negative) Urine Urobilinogen (<2.0) mg/dL Ur Leukocyte Esterase (Negative) Urine WBC (Auto) (0.0-6.0) /HPF Urine RBC (Auto) (0.0-6.0) /HPF U Epithel Cells (Auto) (0-13.0) /HPF Urine Bacteria (Auto) (Negative) /HPF Urine Mucus /HPF Salicylates (2.8-20.0) mg/dL Urine Opiates Screen Urine Methadone Screen Acetaminophen (10.0-30.0) ug/mL Ur Barbiturates Screen Ur Phencyclidine Scrn Ur Amphetamines Screen U Benzodiazepines Scrn Urine Cocaine Screen U Marijuana (THC) Screen Drugs of Abuse Note Plasma/Serum Alcohol (0-0.07) % 10/29/21 10/29/21 10/29/21 Range/Units 15:32 15:32 15:32 WBC (4.5-11.0) K/mm3 RBC (3.65-5.03) M/mm3 Hgb (10.1-14.3) gm/dl Hct (30.3-42.9) % MCV (79-97) fl MCH (28-32) pg MCHC (30-34) % RDW (13.2-15.2) % Plt Count (140-440) K/mm3 Sodium (137-145) mmol/L Potassium (3.6-5.0) mmol/L Chloride (98-107) mmol/L Carbon Dioxide (22-30) mmol/L Anion Gap mmol/L BUN (7-17) mg/dL Creatinine (0.6-1.2) mg/dL Estimated GFR ml/min BUN/Creatinine Ratio % Glucose (65-100) mg/dL Calcium (8.4-10.2) mg/dL Magnesium (1.7-2.3) mg/dL Total Bilirubin (0.1-1.2) mg/dL AST (5-40) units/L ALT (7-56) units/L Alkaline Phosphatase (35-129) units/L Total Creatine Kinase (30-135) units/L Total Protein (6.3-8.2) g/dL Albumin (3.9-5) g/dL Albumin/Globulin Ratio % Lipase (13-60) units/L TSH (0.270-4.200) mlU/mL HCG, Quant (0-4) mIU/mL Urine Color (Yellow) Urine Turbidity (Clear) Urine pH (5.0-7.0) Ur Specific Elon (1.003-1.030) Urine Protein (Negative) mg/dL Urine Glucose (UA) (Negative) mg/dL Urine Ketones (Negative) mg/dL Urine Blood (Negative) Urine Nitrite (Negative) Urine Bilirubin (Negative) Urine Urobilinogen (<2.0) mg/dL Ur Leukocyte Esterase (Negative) Urine WBC (Auto) (0.0-6.0) /HPF Urine RBC (Auto) (0.0-6.0) /HPF U Epithel Cells (Auto) (0-13.0) /HPF Urine Bacteria (Auto) (Negative) /HPF Urine Mucus /HPF Salicylates < 0.3 L (2.8-20.0) mg/dL Urine Opiates Screen Urine Methadone Screen Acetaminophen 9.8 L (10.0-30.0) ug/mL Ur Barbiturates Screen Ur Phencyclidine Scrn Ur Amphetamines Screen U Benzodiazepines Scrn Urine Cocaine Screen U Marijuana (THC) Screen Drugs of Abuse Note Plasma/Serum Alcohol < 0.01 (0-0.07) % - Radiology Data Radiology results: image reviewed - Medical Decision Making Differential diagnosis, including but not limited to: Nausea and vomiting of , poor dentition, methamphetamine abuse, polysubstance abuse, pyuria, bacteriuria, medical clearance, encounter for behavioral health screening examination, encounter for medical screening examination Assessment and plan: 25-year-old female, who was afebrile, with reassuring vital signs, with a GCS of 15, who is clinically sober, not actively vomiting at this time, and noted to be on her cellular phone, with a number of complaints. Complaint #1, nausea and vomiting, now resolved. Tolerating oral feeds. Laboratory studies reviewed and appreciated. [id number] bedside ultrasound demonstrates intrauterine . Outpatient follow-up. Counseled to discontinue methamphetamine consumption. Complaints #2, dental pain. Start chlorhexidine, discontinue methamphetamine and drug abuse, outpatient dental follow-up, proper oral hygiene. Tylenol for pain. Acetaminophen level reviewed and appreciated. Patient reports taken Tylenol as prescribed. LFTs within normal limits. Patient has a GCS of 15, with out homicidality or suicidality, she does not meet criteria for 1013 hold or involuntary hold. Complaint #3, encounter for medical clearance for detox and for homeless assisted. Patient does not appear to have an emergent medical condition present at this time. She will be discharged with appropriate paperwork and prescriptions. She will be given resources for local outpatient homeless shelters, and outpatient substance abuse centers. She will also be provided a good Rx affordable prescription card. Patient observed in this department for hours without clinical decompensation. Antibiotics for bacteriuria. Return precautions are reviewed Critical care attestation.: If time is entered above; I have spent that time in minutes in the direct care of this critically ill patient, excluding procedure time. ED Disposition Clinical Impression: , Poor dentition, History of nausea and vomiting, Methamphetamine abuse, Pyuria, Encounter for medical screening examination, Encounter for behavioral health screening Disposition: 01 HOME / SELF CARE / HOMELESS Is pt being admited?: No Does the pt Need Aspirin: No Condition: Good Instructions: Urinary Tract Infection, Adult, Methamphetamines Use Disorder, Dental Extraction, [id number] Additional Instructions: We recommend that the patient discontinue use of methamphetamines. Consumption of methamphetamines may cause addiction, , paralysis, permanent loss of quality of life and disability. The patient is found to be today. Bedside [id number] ultrasound confirms intrauterine , with heartbeat. The patient should follow-up as soon as possible with an outpatient SENIOR PRO[employer] ARCHIT[employer] doctor to initiate outpatient care. Advance diet as tolerated. Do not consume tobacco, alcohol, smoke products, Motrin, ibuprofen, Naprosyn or Aleve. Patient may take Tylenol/acetaminophen [id number], maximum daily dose to not exceed 3 g per 24 hours. Patient may take the Diclegis, rohit tablets as needed for nausea and vomiting. Patient may take the prescribed Tylenol as needed for physical pain. Patient may use the chlorhexidine oral mouthwash as needed for dental pain and discomfort. [place] teeth twice daily. Floss at least once daily. Follow-up with an outpatient dentist as soon as possible. Follow-up with an outpatient primary care doctor within the next month. The patient was not found to have an emergent medical or psychiatric condition present today while in the emergency room. The patient has no medical or psych iatric preclusion to outpatient discharge to local homeless assisted, will back with family. Please return to the emergency room right away with new pain, worsened pain, migration of pain, homicidality, suicidality, change in mental status, confusion, or any new, worsened or different symptoms not present on the initial emergency room evaluation. Referrals: [facility] [Outside] - 3-[address] [facility] [place] [Outside] - 3-5 Days [facility] [Provider Group] - 3-5 Days
[2021-07-20 15:48] LABS: Hematocrit 39.6 % (30.3-42.9); Mean Corpuscular HGB Conc 33 % (30-34); Mean Corpuscular Volume 90 fl (79-97); Platelet Count 320 K/mm3 (140-440); Red Blood Count 4.38 M/mm3 (3.65-5.03); Red Cell Distribution Width 13.2 % (13.2-15.2)
[2021-07-20 16:06] LABS: Alanine Aminotransferase 9 units/L (7-56); Albumin 4.4 g/dL (3.9-5); BUN/Creatinine Ratio 18; Blood Urea Nitrogen 11 mg/dL (7-17); Calcium 9.8 mg/dL (8.4-10.2); Hemolysis Index 5
[2021-07-20 16:15] VITALS: BP 139/82
[2021-07-20] MEDS ORDERED: PYRIDOXINE 50 MG TAB PO SCH (17:00)
[2021-07-20 17:35] LABS: Benzodiazepines Screen,Urine Negative; Cocaine Screen,Urine Negative; Methadone Screen,Urine Negative; Opiate Screen,Urine Negative
[2021-07-20 17:53] LABS: Bacteria,Urine 2+ /HPF (Negative); Bilirubin,Urine NEG (Negative); Blood,Urine NEG (Negative); Color,Urine Amber (Yellow); Mucus,Urine 3+ /HPF; Urobilinogen,Urine < 2.0 mg/dL (<2.0)
[2021-07-20 18:05] LABS: Amphetamine Screen,Urine Positive; Cannabinoid Screen,Urine Positive
[2021-07-20 18:16] LABS: WBC,Urine > 182.0 /HPF (0.0-6.0)
== END 2021-07-20 19:15 | disposition home or self-care (01) ==
LOC: ED 12:55
DX: O21.9 Vomiting of pregnancy, unspecified (principal); O26.891 Other specified pregnancy related conditions, first trimester; K08.9 Disorder of teeth and supporting structures, unspecified; R82.81 Pyuria; Z13.30 Encounter for screening examination for mental health and behavioral disorders, unspecified; I10 Essential (primary) hypertension; J45.909 Unspecified asthma, uncomplicated; F17.200 Nicotine dependence, unspecified, uncomplicated; F10.20 Alcohol dependence, uncomplicated; F12.90 Cannabis use, unspecified, uncomplicated; Z3A.01 Less than 8 weeks gestation of pregnancy
CPT/HCPCS: 36415; 80053; 80307; 80320; 81001; 82550; 83690; 83735; 84443; 84702; 85027; 99283; 99284; G0480

== ENCOUNTER 2022-02-26 15:13 | Outpatient (CLI) | payer OTHER ==
[2022-02-26 15:31] VITALS: BP 137/72
--- NOTE | 2022-02-26 18:50 | Ultrasound Report ---
ULTRASOUND OBSTETRIC LIMITED ULTRASOUND BIOPHYSICAL PROFILE INDICATION / CLINICAL INFORMATION: well being. Clinical Gestational Age (GA) in weeks, days: 38, 5 TECHNIQUE: Transabdominal. COMPARISON: None available. FINDINGS: BREATHING MOVEMENT = 2 GROSS BODY MOVEMENT = 2 TONE = 2 QUALITATIVE AMNIOTIC FLUID VOLUME = 2 TOTAL BIOPHYSICAL SCORE = 8/8 HEART RATE (beats per minute): 147 AMNIOTIC FLUID INDEX (cm) = 7.8 (normal = 7-24 cm) PRESENTATION: Cephalic. ADDITIONAL FINDINGS: None. IMPRESSION: 1. Biophysical Score = 8/8 2. Amniotic fluid index 7.8 cm. Signer Name: Harinder Fontana MD Signed: 02/26/2022 6:46 PM Workstation Name: [id number]
== END 2022-02-26 19:00 ==
LOC: TRG 15:13 → APU 15:13 → TRG 19:00
PROVIDERS: ATTEND Obstetrics & Gynecology
DX: Z34.93 Encounter for supervision of normal pregnancy, unspecified, third trimester (principal); Z3A.38 38 weeks gestation of pregnancy
CPT/HCPCS: 76815; 76819